=== PATIENT | female | born 1945 ===

== ENCOUNTER 2017-07-29 09:33 | Day surgery (SDC) | payer MEDICARE, BC ==
[2017-07-29] MEDS ORDERED: ACETAZOLAMIDE 500 MG CER ONE (10:21)
[2017-07-29] MEDS: PROPARACAINE HCL 0.5% OPHTHALMIC SOL ONE ×3 (10:36→11:53)
[2017-07-29] MEDS: CYCLOPENTOLATE 1% SOL ONE ×2 (10:37→10:52)
[2017-07-29] MEDS: KETOROLAC 0.5% OPTH 60 DROP SOL ONE ×2 (10:38→10:50)
[2017-07-29] MEDS: PHENYLEPHRINE HCL 10% OPHTHAL SOL ONE ×2 (10:38→10:49)
[2017-07-29] MEDS ORDERED: MIDAZOLAM 2 MG/2 ML SOL ONE ×2 (10:47→11:57)
[2017-07-29] MEDS ORDERED: FENTANYL 100MCG/2ML SOL ONE (10:48)
[2017-07-29 11:01] VITALS: RESP 20; O2SAT 96
[2017-07-29] MEDS ORDERED: POVIDONE IODINE 5% SOL ONE (11:46)
[2017-07-29] MEDS ORDERED: BSS 500 ML 500 ML IR ONE (11:46)
[2017-07-29] MEDS ORDERED: LIDOCAINE HCL 1% MPF SOL ONE (11:46)
[2017-07-29 12:26] VITALS: BP 110/75; PULSE 90; TEMP 97.7
== END 2017-07-29 12:50 | disposition home or self-care (01) | DRG 125 ==
LOC: SURG 09:33
PROVIDERS: ATTEND Ophthalmology
DX: H25.9 Unspecified age-related cataract (principal)
CPT/HCPCS: J2250; J3010; J2001